=== PATIENT | female | born 1985 | race African-American/Black ===

== ENCOUNTER 2018-05-28 11:41 | Emergency (ER) | payer OTHER ==
[~2018-05-28] VITALS: Ht 160 cm; Wt 75.0 kg
[2018-05-28] MEDS ORDERED: IBUPROFEN 800 MG TABLET PO ONE (12:15)
[2018-05-28 14:08] VITALS: BP 129/73
== END 2018-05-28 14:16 | disposition home or self-care (01) ==
LOC: EMS 11:42
DX: S93.402A Sprain of unspecified ligament of left ankle, initial encounter (principal); X50.1XXA Overexertion from prolonged static or awkward postures, initial encounter; Y93.61 Activity, american tackle football; Y92.89 Other specified places as the place of occurrence of the external cause; Y99.8 Other external cause status
CPT/HCPCS: 99284

== ENCOUNTER 2022-12-31 21:29 | Emergency (ER) | payer OTHER ==
[~2022-12-31] VITALS: Ht 160 cm; Wt 75.8 kg
[2022-12-31 21:33] VITALS: BP 152/99
== END 2022-12-31 23:18 | disposition left against medical advice (07) ==
LOC: EMS 21:31
DX: Z53.21 Procedure and treatment not carried out due to patient leaving prior to being seen by health care provider (principal)
CPT/HCPCS: 99281; Z7502